=== PATIENT | female | born 1965 | race Caucasian/White ===

== ENCOUNTER 2016-09-14 18:08 | Emergency (ER) | payer OTHER ==
[~2016-09-14] VITALS: Ht 160 cm; Wt 113.9 kg
--- NOTE | 2016-09-14 19:39 | ED NECK/BACK PAIN COMPLAINT ---
History of Present Illness General Chief Complaint: Low Back Pain/Injury Stated Complaint: LOWER BACK PAIN Source: patient, old records Exam Limitations: no limitations Vital Signs & Intake/Output Vital Signs & Intake/Output Vital Signs Date Time Temp Pulse Resp B/P Pulse O2 O2 Flow FiO2 Ox Delivery Rate 09/14 1828 97.4 97 18 140/87 97 Room Air Allergies Coded Allergies: MDX - Cinnamon (CINNAMON) (06/23/13) MDX - Shrimp (SHRIMP) (06/23/13) Uncoded Allergies: ALLSPICE (06/23/13) Reconcile Medications Tramadol HCl 50 MG TABLET 1 TAB PO BIDP PRN pain Triage Note: RECEIVED 51 YO FEMALE C/O SEVERE LOWER BACK PAIN, STARTED THIS AM, NO C/O NUMBNESS, TINGLING. PAIN WORSENS IN ALL POSITIONS AND MOVEMENTS. Triage Nurses Notes Reviewed? yes Onset: Abrupt Duration: day(s): (1), constant Timing: recent history Quality/Severity: moderate, severe Location: paraspinous muscles Radiation: buttocks Method of Injury: twisted Loss of Consciousness: no loss of consciousness Modifying Factors: movement, rest Associated Symptoms: DENIES HPI: 51-year-old female with history of asthma, scoliosis presents complaining of severe aching throbbing lower back pain bilaterally nonradiating since waking this morning. She states pain began when she got up out of bed and believe she needs twisted her back. There is no fall or trauma. She denies history of similar symptoms in the past. She denies any numbness or tingling down her legs. No abdominal pain urinary symptoms no urinary or bowel incontinence fever or chills. She's been taking Advil today without improvement pain is worse with change in position better at rest Past History Travel History Traveled to [place] past 21 day No Medical History Any Pertinent Medical History? see below for history Neurological: NONE EENT: NONE Cardiovascular: NONE Respiratory: asthma Gastrointestinal: NONE Hepatic: NONE Renal: NONE Musculoskeletal: SCOLIOSIS Psychiatric: NONE Endocrine: NONE Blood Disorders: NONE Cancer(s): NONE Surgical History Surgical History: non-contributory Psychosocial History What is your primary language Persian Tobacco Use: Never used Family History Hx Contributory? No Review of Systems Review of Systems Constitutional: Reports: see HPI. All Other Systems: Reviewed and Negative Comments Review of systems: See HPI, All other systems negative. Constitutional, no chills no fever, no malaise HEENT: No visual changes no sore throat no congestion, no ear pain Cardiovascular: No chest pain , no palpitation Skin, no rashes, no change in skin Respiratory: No dyspnea no cough no sputum no hemoptysis GI: No nausea no vomiting, no diarrhea, : No dysuria Muscle skeletal: No joint pain, no joint swelling, back pain, no neck pain, Neurologic: No numbness no confusion, no headache Psych: No stress Heme/endocrine: No bruising no bleeding Immunology: No lymphadenopathy Physical Exam Physical Exam General Appearance: well developed/nourished, no apparent distress, alert, awake Neck: normal inspection, supple, full range of motion Comments: Well-developed well-nourished person in no acute distress HEENT: Normal EENT exam; PERRL, EOMI. HEAD is atraumatic. moist mucous membranes. Neck: Supple, normal range of motion Back: Bilateral paralumbar muscle tenderness to palpation no ecchymosis no rashes exposed skin, no CVA tenderness. Full range of motion Cardiovascular: Regular rate and rhythms no murmurs rubs Respiratory: No respiratory distress. Patient speaking in full complete sentences. Breath sounds clear to auscultation bilaterally: NO W/R/R Abdomen: Soft, nontender nondistended, no appreciable organomegaly. Normal bowel sounds. No rebound/guarding Extremity: No edema, full range of motion of extremities, normal and equal pulses bilaterally, 5 out of 5 strength noted to bilateral upper and lower extremities negative straight leg raise bilaterally Neuro: Alert oriented x3, motor sensory normal, There were no obvious focal neurologic abnormalities. Skin: No appreciable rash on exposed skin, skin is warm and dry. Psych: Mood and affect is normal, memory and judgment is normal. Progress Differential Diagnosis: cauda equina syn, herniated disc, myofascial strain, pyelo/UTI, sciatica, spinal cord inj, T/L spine injury, ureterolithiasis Plan of Care: Patient clinically looks well. Patient has no evidence of radiculopathy. No urinary bowel dysfunction. No numbness in the genital area. Strength intact. Gross sensation intact. Patient resting comfortably and in no apparent distress. Pain is worse with range of motion. Pain is reproducible IN back with no bruising or ecchymosis noted. . Patient is to follow-up with primary care doctor. May need MRI of the lower back at some point time. No concerns for cauda equina at this point time. I considered this diagnosis but patient does not have any symptoms consistent with cauda equina. Patient has no secondary causes of back pain. No cardiac, pulmonary, or abdominal complaints. No abdominal pain on exam. Cardiac pulmonary exam within normal limits. No rashes, afebrile, denies recent weight loss, dizziness, lightheadedness Departure Departure Time of Disposition: 2003 Disposition: HOME OR SELF CARE Condition: Stable Clinical Impression Primary Impression: Low back strain Referrals: CHRIS DEL RIO,JEB Bueno (PCP/Family) Additional Instructions: Follow-up with your primary care physician tomorrow. Tylenol Motrin every 4-6 hours, tramadol as directed this medication may make you drowsy. This was sent to [facility] ice and heat. Return anytime sooner with any concerns. Departure Forms: Customer Survey General Discharge Information Prescriptions: Current Visit Scripts Tramadol HCl 1 TAB PO BIDP PRN pain #10 TAB
[2016-09-14] MEDS ORDERED: TRAMADOL HCL50 M1 PO (20:04)
[2016-09-14 20:10] VITALS: BP 137/84
== END 2016-09-14 20:11 ==
LOC: ERH 18:08
DX: S39.012A Strain of muscle, fascia and tendon of lower back, initial encounter (principal); X50.9XXA Other and unspecified overexertion or strenuous movements or postures, initial encounter; Y93.89 Activity, other specified; Y92.009 Unspecified place in unspecified non-institutional (private) residence as the place of occurrence of the external cause